=== PATIENT | female | born 1965 | race Caucasian/White ===

== ENCOUNTER 2017-03-14 09:56 | Day surgery (SDC) | payer BC ==
[~2017-03-14 09:56] MED LIST: ACETAMINOPHEN 1000MG/100 ML PREMIX IV ONE
[2017-03-14] MEDS ORDERED: HYDROCODONE/APAP 7.5/325MG TABLET PO ONE (14:39)
[2017-03-14] MEDS ORDERED: DIPHENHYDRAMINE HCL IV 50 MG/ML VIAL IVP ONE (14:39)
[2017-03-14] MEDS ORDERED: HYDROMORPHONE HCL 2 MG/ML VIAL IV ONE (14:39)
[2017-03-14] MEDS ORDERED: BUPIVACAINE 0.25% W/EPI MPF 30ML VIAL IVP ONE (14:39)
[2017-03-14] MEDS ORDERED: PROPOFOL 10 MG/ML VIAL IV ONE (14:45)
[2017-03-14] MEDS ORDERED: SEVOFLURANE 250 ML INH ONE (14:45)
[2017-03-14] MEDS ORDERED: KETOROLAC 30 MG/ML VIAL IVP ONE (14:45)
[2017-03-14] MEDS ORDERED: LIDOCAINE 2% MDV (20MG/ML) 20ML VIAL IV ONE (14:45)
--- NOTE | 2017-03-18 09:54 | Operative Note ---
DATE OF SURGERY: 03/14/2017 REFERRING PROVIDER: Shiva Tran DO PREOPERATIVE DIAGNOSIS: Torn medial meniscus of the left knee. POSTOPERATIVE DIAGNOSES: 1. Torn medial meniscus, left knee. 2. Medial mid patellar plica, left knee. 3. Chondromalacia of the patella, left knee. OPERATIVE PROCEDURES: 1. Arthroscopic partial medial meniscectomy, left knee. 2. Arthroscopic resection, medial mid patella plica, left knee. 3. Arthroscopic chondroplasty of the patella, left knee. DESCRIPTION: This 51-year-old female was taken to the operating room and placed in the supine position on the operating room table where general anesthesia was induced. The left lower extremity was elevated. It was exsanguinated and the tourniquet inflated to 300 mmHg. Arthroscopic knee espinoza applied. Left knee prepped with Hibiclens and draped in the usual sterile fashion. An inferolateral portal was established for the 4 mm arthroscope. Initial evaluation of the joint demonstrated normal appearance of the suprapatellar pouch. The patella demonstrated grade 2 chondromalacia in the center of the median ridge. This was resected through an inferomedial portal to stable articular cartilage. The trochlea appeared normal. The patient had a thickened fibrotic medial mid patella plica, which was resected with the rotating shaver. The medial and lateral gutters were examined and found to be normal. The lateral compartment was entered. Probing of the lateral meniscus and articular cartilage of the lateral compartment demonstrated normal findings. The intercondylar notch was examined and found to be normal. The medial compartment was entered, and the articular cartilage demonstrated a very, very small area of the posterior aspect of the weightbearing surface on the medial femoral condyle, which demonstrated minimal delamination. This was more degenerative, but it was not unstable and not further disturbed. The patient had a tear in the medial meniscus. This tear extended to the meniscal synovial junction at approximately the 1 o'clock position just lateral to the root of the meniscus, and utilizing the basket forceps and rotating shaver, we resected back to the apex. The area which was back to the meniscal synovial junction was very narrow, being only a few millimeters in width. The remainder of the meniscus was smoothed and tapered and contoured and after we had completed the resection, we probed it to confirm restored stability to the meniscus. The wound was then copiously irrigated and suctioned and the instruments were removed. The portals infiltrated with 0.25% Marcaine with epinephrine. Sterile dressings applied. Tourniquet and knee espinoza released, and the patient taken to the recovery room in satisfactory condition. GROSS PATHOLOGY: This patient demonstrated a tear of the medial meniscus as described above. In addition, medial mid patellar plica was present, and chondromalacia of the patella also noted with a very, very small area of the posterior aspect of the medial femoral condyle demonstrating minimal delamination but not unstable and not further disturbed. CC: Zachary TENA
== END 2017-03-14 13:37 | disposition home or self-care (01) ==
LOC: SUR 09:56
PROVIDERS: ATTEND Orthopaedic Surgery
DX: M23.204 Derangement of unspecified medial meniscus due to old tear or injury, left knee (principal); M67.52 Plica syndrome, left knee; M22.42 Chondromalacia patellae, left knee; I10 Essential (primary) hypertension
CPT/HCPCS: 29881; 29879; 01400; J1885; J1170; J1200

== ENCOUNTER 2019-01-25 10:49 | Emergency (ER) | payer BC ==
--- NOTE | 2019-01-25 11:07 | Emergency Department Record ---
History of Present Illness - General Chief Complaint: Laceration(s) Stated Complaint: LAC L INDEX FINGER Time Seen by Provider: 01/25/19 10:53 Source: Patient Mode of Arrival: Ambulatory Limitations: No limitations - History of Present Illness Initial Commments: The patient cut her L 2nd finger on scissors about a half hour ago. She denies any numbness or tingling and her Td is UTD. Onset/Timin -: Minutes(s) Place: Home Context: Accidental, Sharp object use - [place] Coma Scale Eye Response: (4) Open spontaneously Motor Response: (6) Obeys commands Verbal Response: (5) Oriented Jerry Total: 15 - Related Data Year of Tetanus Vaccination: 2017 Patient Tetanus UTD (within 5 yrs): Yes Allergies Allergy/AdvReac Type Severity Reaction Status Date / Time No Known Drug Intolerances Allergy Unknown none Verified 01/25/19 11:04 Travel Screening - Travel/Exposure Within Last 30 Days Have you traveled within the last 30 days?: No - Travel/Exposure Within Last Year Have you traveled outside the [place] in the last year?: No - Additonal Travel Details Have you been exposed to anyone with a communicable illness?: No - Travel Symptoms Symptom Screening: None Review of Systems Constitutional: Denies: Chills, Fever Past Medical History - SOCIAL HISTORY Smoking Status: Light tobacco smoker (<10/day) Alcohol Use: Occasional Drug Use: None - RESPIRATORY Hx Respiratory Disorders: No - CARDIOVASCULAR Hx Cardio Disorders: Yes Hx Hypertension: Yes (on meds good control) - NEURO Hx Neuro Disorders: No - GI Hx GI Disorders: Yes Hx of Polyps: Yes - Hx Genitourinary Disorders: No - ENDOCRINE Hx Endocrine Disorders: No - MUSCULOSKELETAL Hx Musculoskeletal Disorders: Yes Hx Arthritis: Yes Comment:: left knee pain - PSYCH Hx Psych Problems: Yes Hx Depression: Yes - HEMATOLOGY/ONCOLOGY Hx Hematology/Oncology Disorders: No Family Medical History Any Significant Family History?: No Hx Cancer: Father, Grandparents Hx HTN: Father Physical Exam - General General Appearance: Alert, Cooperative, No acute distress - Head Head exam: Atraumatic, Normocephalic - Eye Eye exam: Normal appearance - Extremities Extremities exam: negative: Normal inspection (There is a 3x8 mm skin avulsion to the L 2nd finger radial dorsal surface at the PIP joint. The lac is not completely thru the dermis and her finger is NVI distally with normal tendon function.) Course Vital Signs 01/25/19 10:50 Temperature 98.1 F Pulse Rate 62 Respiratory 18 Rate Blood Pressure 119/80 Pulse Ox 97 - Reevaluation(s) Reevaluation #1: Procedure note: The L 2nd finger was anesth. with 1 cc Lido 1%. The wound was prepped with betadine and lavaged with sterile saline. The lac was not deep and was not down to tendon or bone. The lac edges were then approximated with 3 4.0 nylon sutures. There were no complications. 01/25/19 11:28 Disposition Disposition: Discharge Clinical Impression: Laceration of finger Qualifiers: Encounter type: initial encounter Finger: index finger Damage to nail status: without damage Foreign body presence: without foreign body Laterality: left Qualified Code(s): S61.211A - Laceration without foreign body of left index finger without damage to nail, initial encounter Disposition: Home, Self-Care Condition: (2) Stable Instructions: Laceration (ED) Additional Instructions: Keep dry for 2 days then no soaking or swimming. Watch for signs of infection and have the sutures removed in 10 days. Return to the ER for any problems. Forms: Patient Portal Access Time of Disposition: 11:30 Quality - Quality Measures Quality Measures: N/A - Blood Pressure Screening View Details: Yes Does Patient Have Any of the Following: Active Dx of HTN Blood Pressure Classification: Pre-Hypertensive BP Reading Systolic Measurement: 119 Diastolic Measurement: 80 Screening for High Blood Pressure: Patient Exclusion, Hx of HTN [[id number]]
== END 2019-01-25 11:38 | disposition home or self-care (01) ==
LOC: ER 10:49
DX: S61.211A Laceration without foreign body of left index finger without damage to nail, initial encounter (principal); W27.2XXA Contact with scissors, initial encounter; Y92.009 Unspecified place in unspecified non-institutional (private) residence as the place of occurrence of the external cause; I10 Essential (primary) hypertension; F17.210 Nicotine dependence, cigarettes, uncomplicated
CPT/HCPCS: 12001; 99283